=== PATIENT | male | born 1970 | race Caucasian/White ===

== ENCOUNTER 2023-06-24 16:00 | Emergency (ER) | payer SELFPAY ==
[2023-06-24] VITALS (7 sets, daily range): BP systolic 157–177; BP diastolic 98–128; PULSE 88–113; RESP 16–22; TEMP 37.2; O2SAT 97–100; BMI 29.5
--- NOTE | 2023-06-24 16:50 | ED.PSYCH1 ---
HPI - Psych General Chief Complaint: Psychiatric Symptoms Stated Complaint: SUICIDAL Time Seen by Provider: 06/24/23 16:46 Source: Reports patient Mode of arrival: law enforcement Limitations: Reports no limitations History of Present Illness HPI Narrative: suicidal ideation. Patient with history of anxiety and depression but not currently seeing a counselor or therapist and not taking any meds, was brought in by police after he sent text messages expressing thoughts of suicide. On arrival he told the ED staff that he was having thoughts of suicide and would jump off a bridge . He said that he has been arguing with his and that this arguing triggered these feelings. He denied any self injury and denied ingesting any pills or attempting to hurt himself. Related Data Allergies Allergy/AdvReac Type Severity Reaction Status Date / Time No Known Drug Allergies Allergy Verified 06/24/23 16:03 [facility] Social History Smoking status: Current every day smoker Exam Narrative Exam Narrative: Nurses notes and vital signs reviewed and patient is not hypoxic. afebrile General: Well-appearing and in no apparent distress. Skin: Warm, dry, no pallor noted. Head: Normocephalic, atraumatic. Neck: Supple, non-tender. Eye: Pupils are equal, round and EOMI. No scleral icterus. Ears, Nose, Mouth, and Throat: Oral mucosa is moist Cardiovascular: Regular Rate and Rhythm without murmur, gallop or rub. Respiratory: No accessory muscle use or respiratory distress. Lungs are clear to auscultation, no wheezing, rales or rhonchi Back: No midline thoracic or lumbar vertebral tenderness. No CVA tenderness Musculoskeletal: normal ROM, no calf or popliteal tenderness, no lower extremity edema/swelling GI: Abdomen is soft, non-distended. Normal bowel sounds. No tenderness to palpation. No rebound, guarding, or rigidity noted. Neurological: A&O x4. No cranial nerve dysfunction observed. No truncal ataxia. Moves all extremities. Sensation intact. Psychiatric: Cooperative and interactive. Normal mood and affect. Constitutional Vital Signs, click to edit/add: Last Vital Signs Temp 98.9 F 06/24/23 16:03 Pulse 113 H 06/24/23 16:03 Resp 22 06/24/23 16:03 BP 160/98 H 06/24/23 16:03 Pulse Ox 97 06/24/23 16:03 O2 Del Method Room Air 06/24/23 16:03 Course Vital Signs Vital signs: Vital Signs Temperature 98.9 F 06/24/23 16:03 Pulse Rate 113 H 06/24/23 16:03 Respiratory Rate 22 06/24/23 16:03 Blood Pressure 160/98 H 06/24/23 16:03 Pulse Oximetry 97 06/24/23 16:03 Oxygen Delivery Method Room Air 06/24/23 16:03 Temperature 98.9 F 06/24/23 16:03 Pulse Rate 113 H 06/24/23 16:03 Respiratory Rate 22 06/24/23 16:03 Blood Pressure 160/98 H 06/24/23 16:03 Pulse Oximetry 97 06/24/23 16:03 Oxygen Delivery Method Room Air 06/24/23 16:03 MDM - Psych MDM Narrative Medical decision making narrative: suicide precautions initiated. the patient initially expressed suicidality with the plan being to jump off a bridge. However shortly after he was brought to the emergency department and we obtained a sitter, the patient denied any further suicidal ideation. He said that he was just angry and lashing out. [facility] [employer] was notified and information sent to them regarding this patient's case. They pink slipped the patient and are trying to find placement for admission at a psychiatric facility. The patient is medically cleared His case was signed out to Dr Suarez at 7pm shift change. Lab Data Labs: Lab Results 06/24/23 Range/Units 17:00 WBC 7.8 (4.0-11.0) 10^3/uL RBC 4.49 L (4.70-6.10) 10^6/uL Hgb 13.6 L (14.0-18.0) g/dL Hct 39.5 L (42.0-54.0) % MCV 88.0 (80.0-94.0) fL MCH 30.3 (25.9-34.0) pg MCHC 34.4 (29.9-35.2) g/dL RDW 13.1 (11.0-15.0) % Plt Count 207 (150-450) 10^3/uL MPV 9.2 L (9.5-13.5) fL Neut % (Auto) 63.3 (43.0-75.0) % Lymph % (Auto) 28.2 (20.5-60.0) % Dickey % (Auto) 5.7 (1.7-12.0) % Eos % (Auto) 1.9 (0.9-7.0) % Baso % (Auto) 0.6 (0.2-2.0) % Neut # (Auto) 5.0 (1.4-6.5) 10^3/uL Lymph # (Auto) 2.2 (1.2-3.8) 10^3/uL Dickey # (Auto) 0.5 (0.3-0.8) 10^3/uL Eos # (Auto) 0.2 (0.0-0.7) 10^3/uL Baso # (Auto) 0.1 (0.0-0.1) 10^3/uL Abs Immat Gran (auto) 0.02 (0.00-0.03) 10^3/uL Imm/Tot Granulo (auto) 0.3 (0.0-0.5) % Sodium 136 (136-145) mmol/L Potassium 3.0 L (3.5-5.1) mmol/L Chloride 101 (98-107) mmol/L Carbon Dioxide 27.1 (21.0-32.0) mmol/L Anion Gap 10.9 BUN 5.0 L (7.0-18.0) mg/dL Creatinine 1.00 (0.70-1.30) mg/dL Est GFR ( Amer) >60 (>=60) Est GFR (Non-Af Amer) >60 (>=60) BUN/Creatinine Ratio 5.0 Glucose 105 (74-106) mg/dL Calcium 8.4 L (8.5-10.1) mg/dL Salicylates 4.9 (<=19.9) mg/dL Acetaminophen <2.0 L (10.0-30.0) ug/mL Ethanol Quant <3 mg/dL ECG Data Interpretation: EKG interpretation: Emergency Department physician interpretation. Sinus Tachycardia at 102bpm. RBBB. Indeterminate axis. No ST segment elevation or depression. Discharge Plan Discharge Chief Complaint: Psychiatric Symptoms Clinical Impression: Suicidal ideation Patient Disposition: Still a Patient Referrals: Physician,Non-Staff, MD [Primary Care Provider] - 1 week
[2023-06-24 17:09] LABS: Basophils Absolute Auto 0.1 10^3/uL (0.0-0.1); Basophils Percent Auto 0.6 % (0.2-2.0); Eosinophils Absolute Auto 0.2 10^3/uL (0.0-0.7); Eosinophils Percent Auto 1.9 % (0.9-7.0); Hematocrit 39.5 % (42.0-54.0); Hemoglobin 13.6 g/dL (14.0-18.0); Immature Granulocytes Abs Auto 0.02 10^3/uL (0.00-0.03); Immature Granulocytes Pct Auto 0.3 % (0.0-0.5); Lymphocytes Absolute Auto 2.2 10^3/uL (1.2-3.8); Lymphocytes Percent Auto 28.2 % (20.5-60.0); Mean Corpuscular HGB Conc 34.4 g/dL (29.9-35.2); Mean Corpuscular Hemoglobin 30.3 pg (25.9-34.0); Mean Platelet Volume 9.2 fL (9.5-13.5); Monocytes Absolute Auto 0.5 10^3/uL (0.3-0.8); Monocytes Percent Auto 5.7 % (1.7-12.0); Neutrophils Percent Auto 63.3 % (43.0-75.0); Platelet Count 207 10^3/uL (150-450); Red Blood Count 4.49 10^6/uL (4.70-6.10); Red Cell Distribution Width 13.1 % (11.0-15.0); White Blood Count 7.8 10^3/uL (4.0-11.0)
--- NOTE | 2023-06-24 17:12 | ECG_ITS ---
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
[2023-06-24 17:24] LABS: Anion Gap 10.9; Calcium 8.4 mg/dL (8.5-10.1); Carbon Dioxide 27.1 mmol/L (21.0-32.0); Chloride 101 mmol/L (98-107); Estimated GFR (African America >60 (>=60); Estimated GFR (Non-African Ame >60 (>=60); Ethanol <3 mg/dL; Glucose 105 mg/dL (74-106); Salicylate 4.9 mg/dL (<=19.9); Sodium 136 mmol/L (136-145)
[2023-06-24 17:25] LABS: Acetaminophen <2.0 ug/mL (10.0-30.0)
[2023-06-24] MEDS: LORAZEPAM 0.5 MG TABLET 1 MG PO (21:00)
[2023-06-24] MEDS: BUPRENORPHINE HCL/NALOXONE HCL 8-2 MG TABLET SUBL 1 TAB PO (21:00)
== END 2023-06-24 23:00 ==
PROVIDERS: Emergency Medicine; Emergency Provider Student in an Organized Health Care Education/Training Program
DX: R45.851 Suicidal ideations (principal); F17.210 Nicotine dependence, cigarettes, uncomplicated
CPT/HCPCS: 36415; 80048; 80179; 80307; 80320; 80329; 85025; 93005; 99285